=== PATIENT | female | born 1975 | race Caucasian/White ===

== ENCOUNTER 2024-10-14 20:14 | Emergency (ER) | payer OTHER ==
[~2024-10-14 20:14] MED LIST: Iopamidol-370 76% 500 ML MDV (1 ML CHARGE) ONE
[2024-10-14 21:58] LABS: Bacteria/HPF None Seen HPF (None Seen); Bilirubin Negative (Negative); Blood, Urine 3+ (Negative); CAUTI Indications for Culture Pelvic or flank pain; Calcium Oxalate Crystals 1+ HPF (None Seen); Clarity Turbid (Clear); Glucose, Urine (Dipstick) 500 mg/dL (Negative); Ketone, Urine 40 mg/dL (Negative); Leukocyte 500 Leu/uL (Negative); Nitrite Negative (Negative); Protein, Urine (Dipstick) 70 mg/dL (Neg-Trace); RBC/HPF Greater than 50 HPF (0-3); Specific Gravity, Urine 1.024 (1.002-1.036); Squamous Epithelial None Seen HPF (0-3); Urobilinogen Normal mg/dL (Less than 2); WBC/HPF Greater than 50 HPF (0-3); Yeast-Budding 3+ HPF (None Seen); Yeast-Hyphae 2+ HPF (None Seen)
[2024-10-14 21:59] LABS: Urine Culture Reflex Yes Yes
[2024-10-14] MEDS ORDERED: Morphine 4 MG/ML VIAL ONE (22:01)
[2024-10-14] MEDS ORDERED: Ketorolac Tromethamine 30 MG (1 mL) VIAL ONE (22:01)
[2024-10-14] MEDS ORDERED: Ondansetron PF 4 MG/2 ML Vial ONE (22:01)
[2024-10-14 22:48] LABS: #Basophils 0.05 10x3/uL (0.0-0.2); %Basophils 0.5 % (0.0-1.0); %Eosinophils 0.9 % (0.0-10.0); %Monocytes 9.6 % (0.0-10.0); Hematocrit 36.3 % (36.0-47.0); Hemoglobin 11.7 g/dL (12.0-16.0); Mean Corpuscular HGB CONC 32.2 g/dL (32.0-36.0); Mean Corpuscular Hemoglobin 24.8 pg (27.0-31.0); Mean Corpuscular Volume 76.9 fL (78.0-98.0); Mean Platelet Volume 10.2 fL (7.4-10.4); Platelet Count 456 10x3/uL (130-400); RBC Distribution Width 14.4 % (11.5-14.5); Red Blood Cell (RBC) Count 4.72 mill/uL (4.20-5.40)
[2024-10-14] MEDS ORDERED: Sodium Chloride 0.9% 100 ML ONE (23:02)
[2024-10-14] MEDS ORDERED: cefTRIAXone (ROCEPHIN) 2 GM VIAL ONE (23:02)
[2024-10-14] MEDS ORDERED: Fluconazole 100 MG TAB ONE ×2 (23:02→23:05)
[2024-10-14 23:05] LABS: ALT (SGPT) 18 U/L (8-55); AST (SGOT) 17 U/L (5-34); Albumin 3.1 g/dL (3.5-5.0); Alkaline Phosphatase 119 U/L (40-110); Anion Gap 15 mmol/L (10-20); BUN (Urea Nitrogen) 12 mg/dL (7.0-18.7); Bilirubin, Total 0.4 mg/dL (0.2-1.2); Calc. Creatinine Clearance 0 mL/min (70-130); Calcium 9.4 mg/dL (7.8-10.44); Carbon Dioxide 23 mmol/L (22-29); Chloride 102 mmol/L (98-107); Estimated GFR 107; Globulin 4.2 g/dL (2.4-3.5); Glucose 288 mg/dL (70-105); Lipase 31 U/L (8-78); Protein, Total 7.3 g/dL (6.0-8.3); Sodium 137 mmol/L (136-145)
[2024-10-15] MEDS ORDERED: Amoxicillin/Potassium Clav 875 MG TAB ONE (01:21)
[2024-10-15] MEDS ORDERED: Morphine 4 MG/ML VIAL ONE (01:21)
== END 2024-10-15 02:51 | disposition home or self-care (01) ==
LOC: ERS 20:14
DX: N39.0 Urinary tract infection, site not specified (principal); J18.9 Pneumonia, unspecified organism; B37.9 Candidiasis, unspecified; E11.65 Type 2 diabetes mellitus with hyperglycemia; K45.8 Other specified abdominal hernia without obstruction or gangrene; E78.5 Hyperlipidemia, unspecified
CPT/HCPCS: 51702; 71045; 74177; 80053; 81001; 83690; 85025; 87077; 87086; 96374; 96375; 96376; J0696; J1885; J2270; J2405; Q9967